=== PATIENT | male | born 1965 | race Native Hawaiian/Other Pacific Islander ===

== ENCOUNTER 2017-11-20 13:23 | Outpatient (CLI) | payer OTHER ==
[~2017-11-20 13:23] MED LIST: CLOP75TA2 PO; ISOS30TA17 PO
== END 2017-11-20 19:08 | disposition home or self-care (01) ==
LOC: RAD 13:23
DX: R05 Cough (principal)

== ENCOUNTER 2020-10-05 14:03 | Outpatient (CLI) | payer OTHER | END 2020-10-05 23:01 | disposition home or self-care (01) | LOC: MRI 14:03 | PROVIDERS: ATTEND Family Medicine | DX: S39.012A Strain of muscle, fascia and tendon of lower back, initial encounter (principal); M51.37 Other intervertebral disc degeneration, lumbosacral region; M25.562 Pain in left knee; M25.462 Effusion, left knee; M10.9 Gout, unspecified ==

== ENCOUNTER 2022-05-31 16:22 | Emergency (ER) | payer OTHER ==
[~2022-05-31] VITALS: Ht 154.9 cm; Wt 77.1 kg
[2022-05-31 16:32] VITALS: BP 149/79; TEMP 99.1
[2022-05-31 17:26] LABS: POTASSIUM 3.7 mmol/L (3.6-5.2)
[2022-05-31 17:33] LABS: PLATELET COUNT 320 K/uL (142-355)
[2022-05-31] MEDS ORDERED: CLINDAMYCIN HY300 MG PO (18:07)
== END 2022-05-31 18:45 | disposition home or self-care (01) ==
LOC: ED 16:22
PROVIDERS: Emergency Medicine Emergency Medical Services
DX: L03.115 Cellulitis of right lower limb (principal); W57.XXXA Bitten or stung by nonvenomous insect and other nonvenomous arthropods, initial encounter; Y92.89 Other specified places as the place of occurrence of the external cause
CPT/HCPCS: 36415; 80048; 85027; 87040; 96365; 99284

== ENCOUNTER 2022-06-08 17:27 | Outpatient (CLI) | payer OTHER ==
[~2022-06-08 17:27] MED LIST changes: +CLINDAMYCIN HY300 MG PO
== END 2022-06-08 19:36 | disposition home or self-care (01) ==
LOC: LABW 17:27 → RAD 17:27 → LABW 19:36
PROVIDERS: ATTEND Family Medicine
DX: L03.115 Cellulitis of right lower limb (principal)

== ENCOUNTER 2022-06-09 12:10 | Outpatient (CLI) | payer OTHER ==
[~2022-06-09] VITALS: Ht 165.1 cm; Wt 78.0 kg
[2022-06-09 12:17] VITALS: BP 126/75; TEMP 98.4
[2022-06-09 13:30] LABS: PLATELET COUNT 383 K/uL (142-355)
[2022-06-09 14:31] LABS: POTASSIUM 4.2 mmol/L (3.6-5.2)
[2022-06-09 15:06] VITALS: BP 123/61; TEMP 98.2
== END 2022-06-09 21:51 | disposition home or self-care (01) ==
LOC: INF 12:10
PROVIDERS: ATTEND Internal Medicine
DX: L03.115 Cellulitis of right lower limb (principal)
CPT/HCPCS: 36415; 80053; 85027; 85652; 86140; 96365; 96366; J3370

== ENCOUNTER 2022-06-10 12:57 | Outpatient (CLI) | payer OTHER ==
[2022-06-10 13:15] VITALS: BP 120/69; TEMP 98.6
[2022-06-10 14:47] VITALS: BP 129/62; TEMP 98
== END 2022-06-10 19:12 | disposition home or self-care (01) ==
LOC: INF 12:57
PROVIDERS: ATTEND Internal Medicine
DX: L03.115 Cellulitis of right lower limb (principal)
CPT/HCPCS: 96365; 96367; J3370

== ENCOUNTER 2022-06-11 12:45 | Outpatient (CLI) | payer OTHER ==
[2022-06-11 12:50] VITALS: BP 129/58; TEMP 99
== END 2022-06-11 22:31 | disposition home or self-care (01) ==
LOC: INF 12:45
PROVIDERS: ATTEND Internal Medicine
DX: L03.115 Cellulitis of right lower limb (principal)
CPT/HCPCS: 96365; 96367; J1200; J3370

== ENCOUNTER 2022-06-12 12:51 | Outpatient (CLI) | payer OTHER ==
[~2022-06-12] VITALS: Ht 165.1 cm; Wt 78.0 kg
[2022-06-12 13:04] VITALS: BP 145/64; TEMP 97.8
[2022-06-12 17:50] VITALS: BP 111/56; TEMP 97.5
== END 2022-06-12 18:53 | disposition home or self-care (01) ==
LOC: INF 12:51
PROVIDERS: ATTEND Internal Medicine
DX: L03.115 Cellulitis of right lower limb (principal)
CPT/HCPCS: 36415; 80202; 96365; 96367; J1200; J3370

== ENCOUNTER 2022-06-13 12:35 | Outpatient (CLI) | payer OTHER ==
[~2022-06-13] VITALS: Ht 165.1 cm; Wt 78.0 kg
[2022-06-13 12:45] VITALS: BP 127/66; TEMP 98.5
[2022-06-13 15:49] VITALS: BP 125/70; TEMP 98.3
== END 2022-06-13 18:51 | disposition home or self-care (01) ==
LOC: INF 12:35
PROVIDERS: ATTEND Internal Medicine
DX: L03.115 Cellulitis of right lower limb (principal)
CPT/HCPCS: 96366; 96374; J1200; J3370

== ENCOUNTER 2022-06-14 12:21 | Outpatient (CLI) | payer OTHER ==
[~2022-06-14] VITALS: Ht 165.1 cm; Wt 78.0 kg
[2022-06-14 12:47] VITALS: BP 117/55; TEMP 97.9
[2022-06-14 14:59] VITALS: BP 121/58; TEMP 98
== END 2022-06-14 19:10 | disposition home or self-care (01) ==
LOC: INF 12:21
PROVIDERS: ATTEND Internal Medicine
DX: L03.115 Cellulitis of right lower limb (principal)
CPT/HCPCS: 96366; 96374; J1200; J3370

== ENCOUNTER 2022-06-15 08:04 | Outpatient (CLI) | payer OTHER | END 2022-06-15 20:54 | disposition home or self-care (01) | LOC: INF 08:04 | PROVIDERS: ATTEND Internal Medicine | DX: L03.115 Cellulitis of right lower limb (principal) | CPT/HCPCS: 36415; 80202; 96366; 96374 ==

== ENCOUNTER 2022-06-16 11:56 | Outpatient (CLI) | payer OTHER ==
[~2022-06-16] VITALS: Ht 165.1 cm; Wt 78.0 kg
[2022-06-16 12:26] VITALS: BP 113/60; TEMP 98.3
== END 2022-06-16 23:00 | disposition home or self-care (01) ==
LOC: INF 11:56
PROVIDERS: ATTEND Internal Medicine
DX: L03.115 Cellulitis of right lower limb (principal)
CPT/HCPCS: 96367; 96374; J1200; J3370